=== PATIENT | male | born 1945 | race Caucasian/White ===

== ENCOUNTER 2021-05-20 18:16 | Emergency (ER) | payer OTHER ==
[2021-05-20 19:51] LABS: HEMOGLOBIN 13.6 gm/dl (14.0-17.5); RED BLOOD COUNT 4.51 M/UL (4.20-5.50); WHITE BLOOD COUNT 6.7 K/UL (4.5-11.0)
[2021-05-20 20:12] LABS: BUN/CREATININE RATIO 26 (0-10)
== END 2021-05-20 21:50 | disposition home or self-care (01) ==
LOC: ER1 18:16
PROVIDERS: Physician Assistant
DX: G45.9 Transient cerebral ischemic attack, unspecified (principal); Z20.822 Contact with and (suspected) exposure to COVID-19; R53.83 Other fatigue; I25.10 Atherosclerotic heart disease of native coronary artery without angina pectoris; I25.2 Old myocardial infarction; Z88.0 Allergy status to penicillin; Z79.01 Long term (current) use of anticoagulants
CPT/HCPCS: 70450; 71045; 80053; 82550; 82553; 83874; 83880; 84439; 84443; 84484; 85025; 93005; 99284; U0002

== ENCOUNTER → 2021-05-26 | Outpatient (CLI) | payer MEDICARE | LOC: HEART 5 14:18 | DX: R00.2 Palpitations (principal) ==

== ENCOUNTER → 2021-05-30 | Outpatient (CLI) | payer MEDICARE | LOC: MRI 11:00 → CT 13:00 | DX: I63.312 Cerebral infarction due to thrombosis of left middle cerebral artery (principal); R07.9 Chest pain, unspecified; R90.89 Other abnormal findings on diagnostic imaging of central nervous system | CPT/HCPCS: 70551 ==